=== PATIENT | male | born 1980 | race Hispanic/Latino ===

== ENCOUNTER 2024-03-25 20:12 | Emergency (ER) | payer BC ==
[2024-03-25] MEDS ORDERED: Ketorolac Tromethamine 30 MG (1 mL) VIAL ONE (22:12)
[2024-03-25] MEDS ORDERED: Amoxicillin/Potassium Clav 875 MG TAB ONE (22:12)
== END 2024-03-25 22:25 | disposition home or self-care (01) ==
LOC: ERS 20:12
DX: K04.7 Periapical abscess without sinus (principal); K02.9 Dental caries, unspecified; I10 Essential (primary) hypertension; E11.9 Type 2 diabetes mellitus without complications
CPT/HCPCS: 96372; 99282; J1885